=== PATIENT | male | born 1930 | race Caucasian/White ===

== ENCOUNTER 2016-09-16 09:16 | Outpatient (RCR) | payer MEDICARE, OTHER ==
--- OUTSIDE RECORDS SUMMARY | 2016-09-15 09:13 | XMS REPORT | Continuity of Care Document ---
Author Author [facility] Organization [facility] Address Unknown Phone Unavailable Care Team Providers Care Dredge Lever Operator Name Role Phone MIRIAN CAMPBELL MD PCP Insurance Providers Payer Name Policy Number Subscriber Name Relationship [employer] [id number] Rachid Morales 18 Self / Same As Patient [facility] [id number] Rachid Morales 18 Self / Same As Patient Advance Directives Directive Response Recorded Date/Time Advance Directives Yes 09/04/14 8:39am Health Care Power of Multimedia Production Assistant No 09/04/14 8:39am Organ Donor No 09/04/14 8:39am Problems No problem information available. Medications Current Home Medications Medication Dose Units Route Directions Days/Qty Instructions Start Date Isosorbide Mononitrate 60 Mg 60 Mg Oral Daily 11/12/10 Furosemide (Lasix) 40 Mg 40 Mg Oral Daily 11/12/10 Potassium Chloride 10 Meq 10 Meq Oral Daily 11/12/10 Sertraline Hcl 100 Mg 100 Mg Oral Daily 11/12/10 Eplerenone 25 Mg 25 Mg Oral Twice A Day 11/12/10 Multivitamins 1 Tab 1 Tab Oral Daily 11/12/10 [Combigan] 1 Drop Each Eye Daily 11/12/10 Ezetimibe/Simvastatin 1 Each 1 Tab Oral Bedtime 11/12/10 Celecoxib 200 Mg 200 Mg Oral Bedtime 11/12/10 Latanoprost 2.5 Ml 1 Drop Each Eye Bedtime 11/12/10 Aspirin 81 Mg 81 Mg Oral Daily 09/04/14 Acetaminophen/Hydrocodone Bitart 1 Each 1 Tab Oral Every 8HRS as needed for Pain 09/04/14 Nitroglycerin 4.1 Gm 1 [place] Sublingual As Needed as needed for Chest Pain 09/04/14 Past Home Medications Medication Directions Ordered Status Furosemide (Lasix) 40 Mg Tablet, 10/23/10 Discontinued Potassium Chloride 20 Meq Tabsr, Daily 10/23/10 Discontinued Isosorbide Dinitrate 10 Mg Tablet, Daily 10/23/10 Discontinued [Igmgla99 Mg] , Daily 10/23/10 Discontinued Aspirin 81 Mg Chew, Daily 10/23/10 Discontinued Clopidogrel Bisulfate 75 Mg Tablet, Daily 10/23/10 Discontinued Celecoxib 200 Mg Capsule, Daily 10/23/10 Discontinued Fexofenadine Hcl 30 Mg Tablet, Daily 10/23/10 Discontinued Acetaminophen/Hydrocodone Bitart 1 Each Tablet, As Needed 10/23/10 Discontinued Acetaminophen/Hydrocodone Bitart (Lorcet 5/325MG) 1 Tab Tablet, 1 - 2 Tab Oral Every 6 Hours 10/23/10 Discontinued Fexofenadine Hcl 180 Mg Tablet, 180 Mg Oral Daily 11/12/10 Discontinued Clopidogrel Bisulfate 75 Mg Tablet, 1 Each Oral Bedtime 11/12/10 Discontinued Aspirin 81 Mg Tabec, 81 Mg Oral Bedtime 11/12/10 Discontinued Tamsulosin Hcl 0.4 Mg Cap, 0.4 Mg Oral Bedtime 11/12/10 Discontinued Nitroglycerin 0.4 Mg Subl, 0.4 Mg Sublingual As Needed 11/12/10 Discontinued Ciprofloxacin 500 Mg Tablet, 1 Tab Oral Twice A Day 11/16/10 Discontinued Phenazopyridine Hcl 200 Mg Tablet, 1 Each Oral Three Times A Day And Prn 16/09 Discontinued Hyoscyamine Sulfate (Levsin) 0.125 Mg/Tab Tab.rapdis, 1 - 2 Each Oral Q4hr Prn 11/16/10 Discontinued Social History Social History Problem Response Recorded Date/Time Recent Foreign Travel N [place] 08/05/2016 9:42am Hx Sexually Transmitted Disorders No 11/12/2010 9:11am Hospital Discharge Instructions No hospital discharge instructions. Plan of Care Prescriptions See Medication Section Functional Status No functional status results. Allergies, Adverse Reactions, Alerts No known allergies. Immunizations No immunization records. Vital Signs No known vital signs results. Results Laboratory Results Test Name Result Units Flags Reference Collection Date/Time Result Date/ Time Comments White Blood Count 4.4 10^3/uL 4.3-11.0 07/19/2016 10:39am 07/19/2016 10 :46am Red Blood Count 3.94 10^6/uL L 4.35-5.85 07/19/2016 10:39am 07/19/2016 10 :46am Hemoglobin 12.1 G/DL L 13.3-17.7 07/19/2016 10:39am 07/19/2016 10:46am Hematocrit 36 % L 40-54 07/19/2016 10:39am 07/19/2016 10:46am Mean Corpuscular Volume 91 FL 80-99 07/19/2016 10:39am 07/19/2016 10: 46am Mean Corpuscular Hemoglobin 31 PG 25-34 07/19/2016 10:39am 07/19/2016 10:46am Mean Corpuscular Hemoglobin Concent 34 G/DL 32-36 07/19/2016 10:39am 10:46am Red Cell Distribution Width 16.5 % H 10.0-14.5 07/19/2016 10:39am 2015 10:46am Platelet Count 108 10^3/uL L 130-400 07/19/2016 10:39am 07/19/2016 10: 46am Mean Platelet Volume 10.4 FL 7.4-10.4 07/19/2016 10:39am 07/19/2016 10: 46am Neutrophils (%) (Auto) 59 % 42-75 07/19/2016 10:39am 07/19/2016 10: 46am Lymphocytes (%) (Auto) 25 % 12-44 07/19/2016 10:39am 07/19/2016 10: 46am Monocytes (%) (Auto) 12 % 0-12 07/19/2016 10:39am 07/19/2016 10:46am Eosinophils (%) (Auto) 3 % 0-10 07/19/2016 10:39am 07/19/2016 10:46am Basophils (%) (Auto) 1 % 0-10 07/19/2016 10:39am 07/19/2016 10:46am Neutrophils # (Auto) 2.6 X 10^3 1.8-7.8 07/19/2016 10:39am 07/19/2016 10:46am Lymphocytes # (Auto) 1.1 X 10^3 1.0-4.0 07/19/2016 10:39am 07/19/2016 10:46am Monocytes # (Auto) 0.5 X 10^3 0.0-1.0 07/19/2016 10:39am 07/19/2016 10: 46am Eosinophils # (Auto) 0.2 10^3/uL 0.0-0.3 07/19/2016 10:39am 07/19/2016 10:46am Basophils # (Auto) 0.0 10^3/uL 0.0-0.1 07/19/2016 10:39am 07/19/2016 10 :46am Neutrophils % (Manual) 59 % 07/19/2016 10:39am 07/19/2016 12:38pm Band Neutrophils 1 % 07/19/2016 10:39am 07/19/2016 12:38pm Lymphocytes % (Manual) 15 % 07/19/2016 10:39am 07/19/2016 12:38pm Monocytes % (Manual) 3 % 07/19/2016 10:39am 07/19/2016 12:38pm Eosinophils % (Manual) 2 % 07/19/2016 10:39am 07/19/2016 12:38pm Basophils % (Manual) 0 % 07/19/2016 10:39am 07/19/2016 12:38pm Reactive Lymphocytes 20 % 07/19/2016 10:39am 07/19/2016 12:38pm Anisocytosis MODERATE 07/19/2016 10:39am 07/19/2016 12:38pm Macrocytosis MODERATE 07/19/2016 10:39am 07/19/2016 12:38pm Elliptocytes SLIGHT 07/19/2016 10:39am 07/19/2016 12:38pm Absolute Reticulocyte Count 23 10e9/L L 24-90 07/19/2016 10:39am 2015 10:46am Percent Reticulocyte Count 0.57 % 0.50-2.40 07/19/2016 10:39am 2015 10:46am Procedures No known history of procedures. Encounters Encounter Location Arrival/Admit Date Discharge/Depart Date Attending Provider Discharged Recurring [facility] 08/05/16 9:42am 4:06pm LIZ SEWELL
[2016-09-15 09:48] LABS: BASOPHILS # (AUTO) 0.1 10^3/uL (0.0-0.1); BASOPHILS % (AUTO) 1 % (0-10); EOSINOPHILS # (AUTO) 0.3 10^3/uL (0.0-0.3); EOSINOPHILS % (AUTO) 5 % (0-10); LYMPHOCYTES % (AUTO) 18 % (12-44); MEAN CORPUSCULAR HEMOGLOBIN 30 PG (25-34); MEAN CORPUSCULAR HGB CONC 33 G/DL (32-36); MEAN CORPUSCULAR VOLUME 92 FL (80-99); MEAN PLATELET VOLUME 9.6 FL (7.4-10.4); MONOCYTES # (AUTO) 0.7 X 10^3 (0.0-1.0); MONOCYTES % (AUTO) 13 % (0-12); NEUTROPHILS # (AUTO) 3.3 X 10^3 (1.8-7.8); NEUTROPHILS % (AUTO) 63 % (42-75); PLATELET COUNT 146 10^3/uL (130-400); RED BLOOD COUNT 4.19 10^6/uL (4.35-5.85); RED CELL DISTRIBUTION WIDTH 16.5 % (10.0-14.5); RETICULOCYTE % 0.74 % (0.50-2.40); WHITE BLOOD COUNT 5.3 10^3/uL (4.3-11.0)
[2016-09-15 11:22] LABS: ALBUMIN 3.8 G/DL (3.2-4.5); BILIRUBIN,TOTAL 1.3 MG/DL (0.1-1.0); CALCIUM 9.1 MG/DL (8.5-10.1); CREATININE SERUM 1.16 MG/DL (0.60-1.30); POTASSIUM 4.1 MMOL/L (3.6-5.0); TOTAL PROTEIN 6.2 G/DL (6.4-8.2)
[~2016-09-16 09:16] MED LIST: ACHD5005 PO; ASP81CT; ASP81TEC PO; ASPI-266 PO; CLCX200C; CLCX200C PO; CLOP75TA; CLOP75TA PO; COMBIGAN OU; CPR500T PO; EPLE25TA4 PO; EZET1TAB44 PO; FEXO-104 PO; FEXO30TA17; FURO40TA4; FURO40TA4 PO; HYDR118S10 PO; HYDR1TAB; HYOS0.1217 PO; ISM60TCR PO; ISOS10TA66; KCL10CCR PO; KCL20TCR; LTN005OP2 OU; MULT-608 PO; NITR4.1S2 SL; NTR.4SL SL; PHEN200T27 PO; SERT100T PO; SERT25TA; TMSL.4C PO
== END 2016-12-14 | disposition home or self-care (01) ==
LOC: ONC 09:16
PROVIDERS: ATTEND Internal Medicine Hematology & Oncology
DX: Z08 Encounter for follow-up examination after completed treatment for malignant neoplasm (principal); Z85.51 Personal history of malignant neoplasm of bladder; D69.6 Thrombocytopenia, unspecified; Z79.899 Other long term (current) drug therapy
CPT/HCPCS: 36415; 80053; 85025; 85045; 99213

== ENCOUNTER → 2017-06-27 | Outpatient (CLI) | payer MEDICARE, OTHER ==
[2017-06-27 12:14] LABS: CALCIUM 8.9 MG/DL (8.5-10.1); CREATININE SERUM 2.63 MG/DL (0.60-1.30); POTASSIUM 2.8 MMOL/L (3.6-5.0)
== END ==
LOC: HH 11:46
PROVIDERS: ATTEND Internal Medicine Cardiovascular Disease
DX: I13.0 Hypertensive heart and chronic kidney disease with heart failure and stage 1 through stage 4 chronic kidney disease, or unspecified chronic kidney disease (principal); I50.43 Acute on chronic combined systolic (congestive) and diastolic (congestive) heart failure; N18.3 Chronic kidney disease, stage 3 (moderate)
CPT/HCPCS: 80048

== ENCOUNTER → 2017-06-29 | Outpatient (CLI) | payer MEDICARE, OTHER ==
[2017-06-29 11:21] LABS: CALCIUM 9.2 MG/DL (8.5-10.1); CREATININE SERUM 2.18 MG/DL (0.60-1.30); POTASSIUM 2.8 MMOL/L (3.6-5.0)
== END ==
LOC: HH 10:57
PROVIDERS: ATTEND Internal Medicine Cardiovascular Disease
DX: I50.9 Heart failure, unspecified (principal)
CPT/HCPCS: 80048

== ENCOUNTER → 2017-07-04 | Outpatient (CLI) | payer MEDICARE, OTHER ==
[2017-07-04 11:37] LABS: CALCIUM 8.5 MG/DL (8.5-10.1); CREATININE SERUM 1.78 MG/DL (0.60-1.30); POTASSIUM 3.3 MMOL/L (3.6-5.0)
== END ==
LOC: HH 11:01
PROVIDERS: ATTEND Internal Medicine Cardiovascular Disease
DX: I50.43 Acute on chronic combined systolic (congestive) and diastolic (congestive) heart failure (principal); N18.3 Chronic kidney disease, stage 3 (moderate)
CPT/HCPCS: 80048

== ENCOUNTER → 2017-07-11 | Outpatient (CLI) | payer MEDICARE, OTHER ==
[2017-07-11 10:37] LABS: BASOPHILS % (AUTO) 0 % (0-10); EOSINOPHILS # (AUTO) 0.2 10^3/uL (0.0-0.3); EOSINOPHILS % (AUTO) 3 % (0-10); LYMPHOCYTES # (AUTO) 1.3 X 10^3 (1.0-4.0); LYMPHOCYTES % (AUTO) 25 % (12-44); MEAN CORPUSCULAR HEMOGLOBIN 28 PG (25-34); MEAN CORPUSCULAR HGB CONC 33 G/DL (32-36); MEAN CORPUSCULAR VOLUME 87 FL (80-99); MEAN PLATELET VOLUME 10.2 FL (7.4-10.4); MONOCYTES # (AUTO) 0.6 X 10^3 (0.0-1.0); MONOCYTES % (AUTO) 11 % (0-12); NEUTROPHILS # (AUTO) 3.1 X 10^3 (1.8-7.8); NEUTROPHILS % (AUTO) 60 % (42-75); PLATELET COUNT 130 10^3/uL (130-400); RED BLOOD COUNT 3.47 10^6/uL (4.35-5.85); RED CELL DISTRIBUTION WIDTH 17.5 % (10.0-14.5); WHITE BLOOD COUNT 5.2 10^3/uL (4.3-11.0)
[2017-07-11 10:54] LABS: CALCIUM 9.2 MG/DL (8.5-10.1); CREATININE SERUM 2.13 MG/DL (0.60-1.30)
[2017-07-11 11:01] LABS: POTASSIUM 2.2 MMOL/L (3.6-5.0)
== END ==
LOC: HH 10:32
PROVIDERS: ATTEND Internal Medicine Cardiovascular Disease
DX: I13.0 Hypertensive heart and chronic kidney disease with heart failure and stage 1 through stage 4 chronic kidney disease, or unspecified chronic kidney disease (principal); N18.3 Chronic kidney disease, stage 3 (moderate); I50.43 Acute on chronic combined systolic (congestive) and diastolic (congestive) heart failure
CPT/HCPCS: 80048; 85025

== ENCOUNTER → 2017-07-13 | Outpatient (CLI) | payer MEDICARE, OTHER ==
[2017-07-13 14:42] LABS: CALCIUM 9.3 MG/DL (8.5-10.1); CREATININE SERUM 2.18 MG/DL (0.60-1.30); POTASSIUM 2.9 MMOL/L (3.6-5.0)
== END ==
LOC: HH 14:12
PROVIDERS: ATTEND Internal Medicine Cardiovascular Disease
DX: E87.6 Hypokalemia (principal)
CPT/HCPCS: 80048

== ENCOUNTER → 2017-07-18 | Outpatient (CLI) | payer MEDICARE, OTHER ==
[2017-07-18 13:28] LABS: MEAN PLATELET VOLUME 10.3 FL (7.4-10.4); RED BLOOD COUNT 3.45 10^6/uL (4.35-5.85); RED CELL DISTRIBUTION WIDTH 18.1 % (10.0-14.5); WHITE BLOOD COUNT 5.7 10^3/uL (4.3-11.0)
[2017-07-18 13:43] LABS: CALCIUM 9.1 MG/DL (8.5-10.1); CREATININE SERUM 1.99 MG/DL (0.60-1.30); POTASSIUM 3.1 MMOL/L (3.6-5.0)
== END ==
LOC: HH 13:23
PROVIDERS: ATTEND Internal Medicine Cardiovascular Disease
DX: I50.43 Acute on chronic combined systolic (congestive) and diastolic (congestive) heart failure (principal); N18.3 Chronic kidney disease, stage 3 (moderate)
CPT/HCPCS: 80048; 85027

== ENCOUNTER → 2017-07-25 | Outpatient (CLI) | payer MEDICARE, OTHER ==
[2017-07-25 10:30] LABS: MEAN PLATELET VOLUME 9.8 FL (7.4-10.4); RED BLOOD COUNT 3.51 10^6/uL (4.35-5.85); WHITE BLOOD COUNT 5.5 10^3/uL (4.3-11.0)
[2017-07-25 10:46] LABS: CALCIUM 9.2 MG/DL (8.5-10.1); CREATININE SERUM 2.11 MG/DL (0.60-1.30)
[2017-07-25 10:53] LABS: POTASSIUM 2.4 MMOL/L (3.6-5.0)
== END ==
LOC: HH 09:40
PROVIDERS: ATTEND Internal Medicine Cardiovascular Disease
DX: I50.43 Acute on chronic combined systolic (congestive) and diastolic (congestive) heart failure (principal); N18.3 Chronic kidney disease, stage 3 (moderate)
CPT/HCPCS: 80048; 85027

== ENCOUNTER → 2017-07-28 | Outpatient (CLI) | payer MEDICARE, OTHER ==
[2017-07-28 12:48] LABS: CALCIUM 9.2 MG/DL (8.5-10.1); CREATININE SERUM 2.13 MG/DL (0.60-1.30)
[2017-07-28 12:53] LABS: POTASSIUM 2.3 MMOL/L (3.6-5.0)
== END ==
LOC: HH 12:19
PROVIDERS: ATTEND Internal Medicine Cardiovascular Disease
DX: E87.6 Hypokalemia (principal)
CPT/HCPCS: 80048

== ENCOUNTER → 2017-08-02 | Outpatient (CLI) | payer MEDICARE, OTHER ==
[2017-08-02 11:41] LABS: CALCIUM 8.7 MG/DL (8.5-10.1); CREATININE SERUM 2.17 MG/DL (0.60-1.30); POTASSIUM 3.4 MMOL/L (3.6-5.0)
== END ==
LOC: HH 09:00
PROVIDERS: ATTEND Internal Medicine Cardiovascular Disease
DX: E87.6 Hypokalemia (principal)
CPT/HCPCS: 80048; 83735

== ENCOUNTER → 2017-08-04 | Outpatient (CLI) | payer MEDICARE, OTHER ==
[2017-08-04 11:45] LABS: CALCIUM 8.8 MG/DL (8.5-10.1); CREATININE SERUM 1.99 MG/DL (0.60-1.30); POTASSIUM 3.4 MMOL/L (3.6-5.0)
== END ==
LOC: HH 09:30
PROVIDERS: ATTEND Internal Medicine Cardiovascular Disease
DX: I50.42 Chronic combined systolic (congestive) and diastolic (congestive) heart failure (principal)
CPT/HCPCS: 80048

== ENCOUNTER → 2017-08-10 | Outpatient (CLI) | payer MEDICARE, OTHER ==
[2017-08-10 15:49] LABS: CALCIUM 8.7 MG/DL (8.5-10.1); CREATININE SERUM 1.99 MG/DL (0.60-1.30); POTASSIUM 3.8 MMOL/L (3.6-5.0)
== END ==
LOC: HH 15:29
PROVIDERS: ATTEND Internal Medicine Cardiovascular Disease
DX: I13.0 Hypertensive heart and chronic kidney disease with heart failure and stage 1 through stage 4 chronic kidney disease, or unspecified chronic kidney disease (principal); N18.9 Chronic kidney disease, unspecified; I50.9 Heart failure, unspecified
CPT/HCPCS: 80048

== ENCOUNTER → 2018-05-08 | Outpatient (CLI) | payer MEDICARE, OTHER ==
--- NOTE | 2018-05-08 16:31 | Diagnostic Imaging Report ---
INDICATION: Fall. Trauma to the head. Now with memory loss. TECHNIQUE: Routine non contrast-enhanced axial images were obtained from the skull base to the vertex. COMPARISON: 06/11/2007. FINDINGS: The ventricles and cortical sulci are diffusely prominent, compatible with age-related volume loss. There are confluent areas of abnormal, low attenuation in the periventricular white matter. This is consistent with chronic small vessel ischemic changes. There is no midline shift or mass-effect. No acute intra-axial hemorrhage is seen. There are no abnormal areas of increased or decreased density to suggest acute hemorrhage or edema. No extra-axial masses or collections are present. The bony calvarium is intact. The visualized paranasal sinuses show mild scattered mucosal thickening with mucosal retention cyst versus polyp in the right maxillary sinus. The mastoid air cells are clear. IMPRESSION: 1. No acute intracranial abnormality. No CT evidence of mass, acute infarct or intracranial hemorrhage. 2. Chronic small vessel ischemic changes in the deep white matter. Dictated by: Dictated on workstation # [id number]
== END ==
LOC: RAD 16:02
PROVIDERS: ATTEND Internal Medicine
DX: I67.82 Cerebral ischemia (principal); S09.90XA Unspecified injury of head, initial encounter; W19.XXXA Unspecified fall, initial encounter
CPT/HCPCS: 70450

== ENCOUNTER → 2018-08-07 | Outpatient (CLI) | payer MEDICARE, OTHER | LOC: WOUNDCARE 12:22 | PROVIDERS: ATTEND Surgery | DX: L97.211 Non-pressure chronic ulcer of right calf limited to breakdown of skin (principal); L97.221 Non-pressure chronic ulcer of left calf limited to breakdown of skin; I87.333 Chronic venous hypertension (idiopathic) with ulcer and inflammation of bilateral lower extremity; I50.9 Heart failure, unspecified; I70.232 Atherosclerosis of native arteries of right leg with ulceration of calf | CPT/HCPCS: 99214 ==

== ENCOUNTER → 2018-08-14 | Outpatient (CLI) | payer MEDICARE, OTHER | LOC: WOUNDCARE 14:34 | PROVIDERS: ATTEND Surgery | DX: I70.232 Atherosclerosis of native arteries of right leg with ulceration of calf (principal); I87.331 Chronic venous hypertension (idiopathic) with ulcer and inflammation of right lower extremity; L97.211 Non-pressure chronic ulcer of right calf limited to breakdown of skin; I87.322 Chronic venous hypertension (idiopathic) with inflammation of left lower extremity; I50.9 Heart failure, unspecified | CPT/HCPCS: 99213 ==

== ENCOUNTER → 2018-08-21 | Outpatient (CLI) | payer MEDICARE, OTHER | LOC: WOUNDCARE 14:53 | PROVIDERS: ATTEND Surgery | DX: I70.232 Atherosclerosis of native arteries of right leg with ulceration of calf (principal); I87.333 Chronic venous hypertension (idiopathic) with ulcer and inflammation of bilateral lower extremity; L97.211 Non-pressure chronic ulcer of right calf limited to breakdown of skin; L97.221 Non-pressure chronic ulcer of left calf limited to breakdown of skin; I50.9 Heart failure, unspecified | CPT/HCPCS: 99214 ==